=== PATIENT | female | born 2000 | race Caucasian/White ===

== ENCOUNTER 2025-01-12 22:23 | Observation (INO) ==
[2025-01-12] MEDS: ONDANSETRON INJ 2 MG/ML 2 ML VIAL IV STA (22:59)
[2025-01-12] MEDS: SODIUM CHLORIDE 0.9% 500 ML IV STA (23:01)
[2025-01-12] MEDS: KETOROLAC TROMETHAMINE 15 MG/ML VIAL IV ONE (23:37)
[2025-01-12] MEDS: SODIUM CHLORIDE 0.9% 1,000 ML IV ONE (23:37)
[2025-01-12 23:39] LABS: Hematocrit (blood only) 38.1 % (37.0-47.0); Hemoglobin 13.2 g/dl (12.0-16.0); Mean Corpuscular Hemoglobin 30.0 pg (25.0-34.0); Mean Corpuscular Volume 86.6 fL (80.0-100.0); Platelet Count 254 K/uL (130-400); RDW Standard Deviation 38.2 fL (36.4-46.3); Red Blood Count 4.40 M/uL (4.20-5.40); White Blood Count 13.69 K/ul (4.8-10.8)
--- NOTE | 2025-01-12 23:48 | Emergency Department Note ---
Impression & Plan Nausea & vomiting, Colic, ureteral, Right lower quadrant abdominal pain ED Provider Note NAME: MARITA MART AGE: 24 SEX: F : 2000 ARRIVES VIA: Walk-In INFORMANT: Patient, ED PROVIDER(S): Kourtney Remy MD CHIEF COMPLAINT: Kidney stone, nausea, vomiting HPI: This is a 24-year-old female presenting for nausea vomiting, dehydration kidney stone. Patient notes that she was here the past 2 nights as well. She does for the kidney stone on the right side by 2 nights ago. She did have persistent abdominal pain, nausea and vomiting. She presented yesterday. After fluid resuscitation and antiemetics, she had improved and was discharged home. Today she returns with persistent nausea, vomiting unable to keep fluids down. She has had minimal urine output due to not tolerating fluids. She still reports excruciating abdominal pain On the right side. Otherwise no urinary symptoms. Is currently on antibiotics ROS: See above HPI for pertinent positives & negatives. A total of 10 systems reviewed and were otherwise negative. PAST MEDICAL HISTORY: See Below PAST SURGICAL HISTORY: See Below FAMILY HISTORY: See Below SOCIAL HISTORY: See Below HOME MEDICATIONS: See Below ALLERGIES: See Below VITALS: See Below PHYSICAL EXAMINATION: General: resting comfortably in no acute distress Head: Normocephalic and atraumatic Eyes: Normal inspection, extraocular muscles intact Ear, nose, throat: Normal external exam Neck: Normal range of motion Respiratory: lungs clear to auscultation bilaterally Cardiovascular: Regular rate/rhythm, no murmur GI: Mild right pain without rebound or guarding Extremities: nontender, moves all extremities Neuro: The patient awake and alert, appropriately conversive, no focal deficits, symmetric faces Skin: Warm, dry, and intact MEDICAL DECISION MAKING: This is a 24-year-old male with send for nausea vomiting, abdominal pain. Patient was noted to have a kidney stone on CT imaging by 2 nights ago. Had repeat blood work done yesterday and appeared well. Today returns with persistent symptoms and inability tolerate fluids/food. Will do screening blood work, Zofran. - Leukocytosis increasing to 13.69. There is no toxic vacuolization and granulation. Will start on ceftriaxone at this time as urinalysis is also positive. -Patient has improvement after Toradol and Zofran however still having persistent symptoms. She is still tachycardic. Will admit to the hospital service at this time due to intractable nausea, vomiting, pain as well as increased leukocytosis, toxic vacuolization/granulation. -Care discussed with Dr. Santana for admission and urologic consultation. Differential diagnosis: Sepsis, renal colic, UTI, Independent History obtained from: Girlfriend Diagnostics interpreted by me: ECG: None Cardiac Monitoring: An order was placed for continuous cardiac monitoring. The monitor shows a rate of 102 with sinus rhythm. Past Med/Surg History Problem List (Updated 01/13/25 @ 01:16 EST by Kourtney Remy MD) Nausea & vomiting (Acute) Urinary frequency (Acute) Right lower quadrant abdominal pain (Acute) Nausea & vomiting (Acute) Colic, ureteral (Acute) Medical History Horseshoe kidney Headache Psychological disorder Surgical History No pertinent past surgical history Family History Grandfather (Maternal) Diabetes Social History Smoking Status: Never smoker Preferred Language: Mohawk marital status: Life Partner current occupational status: employed Feels Safe at Home: Yes Diet: regular during the past year weight has: remained stable Allergies Allergies Allergy/AdvReac Type Severity Reaction Status Date / Time amoxicillin AdvReac Intermediate hyperactivi Verified 01/12/25 23:26 ty fluconazole [From Diflucan] AdvReac Intermediate Gastrointestinal Verified 01/12/25 23:26 Upset Home Meds Home Medications Medication Instructions Recorded Confirmed diphenhydramine HCl 25 mg capsule 25 mg PO DIRECTED PRN Allergic 08/21/24 01/12/25 (Benadryl) Reaction ibuprofen 200 mg capsule 400 mg PO Q6H PRN Pain 08/30/24 01/12/25 Previous Rx's Medication Instructions Recorded ondansetron 4 mg disintegrating 4 mg PO Q8H PRN nausea and 01/10/25 tablet vomiting 5 days #15 tabs oxycodone 5 mg tablet 5 mg PO Q12H PRN pain #4 tabs 01/10/25 tamsulosin 0.4 mg capsule (Flomax) 0.4 mg PO HS #7 caps 01/10/25 cephalexin 500 mg capsule 500 mg PO TID 7 days #21 caps 01/11/25 Results & Data (ED) Vital Signs Vital Signs - 24 hr 01/12/25 22:33 01/12/25 23:19 01/12/25 23:21 Temperature 36.6 C Temperature Source Oral Pulse Rate 123 H 111 H 105 H Pulse Rate from SpO2 Sensor 106 H Respiratory Rate 18 14 Respiratory Effort / Characteristics Non-Labored Spontaneous Respiratory Depth Normal Respiratory Pattern Regular Blood Pressure 119/73 140/70 Blood Pressure Mean 88 93 Blood Pressure Position Sitting Pulse Oximetry 96 97 Oxygen Delivery Method Room Air Room Air Sepsis Recent Fever Within 48 Hours No Sepsis New/Unexplained Change in Mental Status N/A Sepsis Action Taken by Nursing No Action Required 01/12/25 23:33 01/12/25 23:54 01/13/25 00:00 Temperature Temperature Source Pulse Rate 111 H 112 H 91 H Pulse Rate from SpO2 Sensor 110 H 113 H 90 Respiratory Rate 19 17 20 Respiratory Effort / Characteristics Respiratory Depth Respiratory Pattern Blood Pressure 110/60 104/65 Blood Pressure Mean 76 84 Blood Pressure Position Pulse Oximetry 98 97 98 Oxygen Delivery Method Room Air Room Air Room Air Sepsis Recent Fever Within 48 Hours Sepsis New/Unexplained Change in Mental Status Sepsis Action Taken by Nursing 01/13/25 00:30 01/13/25 00:36 01/13/25 01:30 EDT Temperature Temperature Source Pulse Rate 124 H 102 H 104 H Pulse Rate from SpO2 Sensor 120 H 103 H 104 H Respiratory Rate 22 21 18 Respiratory Effort / Characteristics Respiratory Depth Respiratory Pattern Blood Pressure 115/98 118/81 Blood Pressure Mean 103 93 Blood Pressure Position Pulse Oximetry 96 99 98 Oxygen Delivery Method Room Air Room Air Room Air Sepsis Recent Fever Within 48 Hours Sepsis New/Unexplained Change in Mental Status Sepsis Action Taken by Nursing Laboratory Data 01/12/25 23:10 01/12/25 23:10 Lab Results 01/12/25 01/12/25 Range/Units 23:10 Unknown WBC 13.69 H (4.8-10.8) K/ul RBC 4.40 (4.20-5.40) M/uL Hgb 13.2 (12.0-16.0) g/dl Hct 38.1 (37.0-47.0) % MCV 86.6 (80.0-100.0) fL MCH 30.0 (25.0-34.0) pg MCHC 34.6 (32.0-36.0) g/dL RDW Std Deviation 38.2 (36.4-46.3) fL RDW Coeff of Sunil 12.0 (11.5-14.5) % Plt Count 254 (130-400) K/uL MPV 11.6 (9.4-12.4) fL Immature Gran % (Auto) 0.3 % Neut % (Auto) 91.4 % Lymph % (Auto) 3.0 % [place] % (Auto) 4.8 % Eos % (Auto) 0.1 % Baso % (Auto) 0.4 % Neut # (Auto) 12.52 H (1.40-6.50) K/uL Lymph # (Auto) 0.41 L (1.20-3.40) K/uL [place] # (Auto) 0.66 H (0.11-0.59) K/uL Eos # (Auto) 0.01 (0.00-0.50) K/uL Baso # (Auto) 0.05 (0.00-0.20) K/uL Immature Gran # (Auto) 0.04 (0.01-0.20) K/uL Toxic Granulation 1+ Toxic Vacuolation 1+ Polychromasia 1+ Sodium 141 (136-145) mmol/L Potassium 3.8 (3.5-5.1) mmol/L Chloride 105 (98-107) mmol/L Carbon Dioxide 26 (21-32) mmol/L Anion Gap 10 (3-11) BUN 11 (6-23) mg/dl Creatinine 0.86 (0.6-1.2) mg/dl Est Cr Clr Drug Dosing 79.9 ml/min eGFR 96.69 BUN/Creatinine Ratio 12.8 (10-20) Glucose 118 H (70-99(Fasting)) mg/dl Calcium 9.5 (8.6-10.3) mg/dl Magnesium 2.0 (1.7-2.4) mg/dl Total Bilirubin 0.5 (0.2-1.0) mg/dl AST 14 (13-39) U/L ALT 8 (7-52) U/L Alkaline Phosphatase 65 (34-104) U/L Total Protein 7.8 (6.0-8.3) gm/dl Albumin 4.6 (3.4-5.0) gm/dl Globulin 3.2 (2.5-4.0) gm/dl Albumin/Globulin Ratio 1.4 (0.9-2) Lipase 10 L (11-82) U/L HCG, Qual Negative (Negative) Urine Color Yellow Urine Appearance Cloudy A (Clear) Urine pH 5.5 (4.5-7.5) Ur Specific [place] 1.028 (1.000-1.030) Urine Protein 1+ H (Negative) Urine Glucose (UA) Negative (Negative) Urine Ketones 3+ H (Negative) Urine Blood 3+ H (Negative) Urine Nitrite Negative (Negative) Urine Bilirubin Negative (Negative) Urine Urobilinogen Negative (Negative) Ur Leukocyte Esterase 1+ H (Negative) Urine WBC (Auto) 21-50 H (0-5) /hpf Urine RBC (Auto) 6-10 H (0-2) /hpf U Hyaline Cast (Auto) 0-2 (0-2) /lpf U Epithel Cells (Auto) 11-20 H (0-2) /hpf Urine Bacteria (Auto) None Seen (None Seen) Urine Comment Administered Medications Potassium Chloride/Sodium Chloride (Normal Saline W/20 Meq Kcl) 20 meq in 1,000 mls @ 200 mls/hr IV .Q5H ONE Stop: 01/13/25 06:29 Last Admin: 01/13/25 01:09 EST Dose: 200 mls/hr Documented By: ABDON Discontinued Medications Sodium Chloride (Nss) 500 mls @ 999 mls/hr IV .Q31M STA Stop: 01/12/25 23:06 Last Infusion: 01/12/25 23:32 Dose: Infused Documented By: Admin: 01/12/25 23:01 Dose: 999 mls/hr Documented By: MARLENI Sodium Chloride (Nss) 1,000 mls @ 999 mls/hr IV .Q1H1M ONE Stop: 01/13/25 00:33 Last Infusion: 01/13/25 01:16 EDT Dose: Infused Documented By: Admin: 01/12/25 23:37 Dose: 999 mls/hr Documented By: ABDON Ceftriaxone Sodium (Rocephin) 2,000 mg in 50 mls @ 100 mls/hr IV NOW STA Stop: 01/13/25 01:36 EST Last Admin: 01/13/25 01:05 EST Dose: Not Given Documented By: ABDON Cefepime HCl (Maxipime 2000mg) 2,000 mg in 20 mls @ 5 mls/min IV NOW ONE; Protocol Stop: 01/13/25 01:33 EST Last Admin: 01/13/25 01:11 EST Dose: 5 mls/min Documented By: ABDON Ketorolac Tromethamine (Ketorolac Tromethamine 15 Mg/Ml Vial) 15 mg IV NOW ONE Stop: 01/12/25 23:34 Last Admin: 01/12/25 23:37 Dose: 15 mg Documented By: ABDON Ondansetron HCl (Ondansetron Inj 2 Mg/Ml 2 Ml Vial) 4 mg IV NOW STA Stop: 01/12/25 22:37 Last Admin: 01/12/25 22:59 Dose: 4 mg Documented By: MARLENI Discharge Plan Visit Data Chief Complaint: Vomiting Stated Complaint: ABD PAIN, VOMITING ED Provider: Kourtney Remy Discharge Problem: Nausea & vomiting, Colic, ureteral, Right lower quadrant abdominal pain Patient Disposition: Admitted As Inpatient Condition: Fair Forms Stand Alone Forms: [facility] Prescriptions Prescriptions: No Action ibuprofen 200 mg capsule 400 mg PO Q6H PRN (Reason: Pain) diphenhydramine HCl [Benadryl] 25 mg Capsule 25 mg PO DIRECTED PRN (Reason: Allergic Reaction) tamsulosin [Flomax] 0.4 mg capsule 0.4 mg PO HS Qty: 7 0RF ondansetron 4 mg tablet,disintegrating 4 mg PO Q8H PRN (Reason: nausea and vomiting) 5 Days Qty: 15 0RF oxycodone 5 mg tablet 5 mg PO Q12H PRN (Reason: pain) Qty: 4 0RF cephalexin 500 mg capsule 500 mg PO TID 7 Days Qty: 21 0RF Referrals Referrals: Rex Deleon [Primary Care Provider] -
[2025-01-12 23:57] LABS: Alanine Aminotransferase 8.0 U/L (7-52); Albumin Globulin Ratio 1.4 (0.9-2); Albumin Level 4.6 gm/dl (3.4-5.0); Alkaline Phosphatase 65.0 U/L (34-104); Anion Gap 10.0 (3-11); Bilirubin,Total 0.5 mg/dl (0.2-1.0); Blood Urea Nitrogen 11.0 mg/dl (6-23); Calcium 9.5 mg/dl (8.6-10.3); Carbon Dioxide 26.0 mmol/L (21-32); Chloride 105.0 mmol/L (98-107); Creatinine Clr Calc Pharmacy 79.9 ml/min; Globulin 3.2 gm/dl (2.5-4.0); Glucose 118.0 mg/dl (70-99(Fasting)); Lipase 10.0 U/L (11-82); Potassium 3.8 mmol/L (3.5-5.1); Sodium 141.0 mmol/L (136-145); Total Protein 7.8 gm/dl (6.0-8.3)
[2025-01-13 00:31] LABS: Appearance Urine Cloudy (Clear); Bacteria Urine Automated None Seen (None Seen); Cast Urine Automated 0-2 /lpf (0-2); Glucose Urine UA Negative (Negative); WBC Urine Automated 21-50 /hpf (0-5)
[2025-01-13 00:35] LABS: Pregnancy Test, Serum Negative (Negative)
[2025-01-13 01:02] LABS: Immature Granulocytes # (auto) 0.04 K/uL (0.01-0.20); Immature Granulocytes % (auto) 0.3 %; Polychromasia 1+; Toxic Granulation 1+; Toxic Vacuolation 1+
[2025-01-13] MEDS: cefTRIAXone SODIUM 2,000 MG/50 ML BAG IV STA (01:05)
[2025-01-13] MEDS: NSS + 20MEQ KCL 20 MEQ/1,000 ML BAG IV ONE (01:09)
[2025-01-13] MEDS: CEFEPIME 2000MG 2,000 MG/20 ML SYR IV ONE (01:11)
--- NOTE | 2025-01-13 01:21 | History & Physical Report ---
Date of Service January 13, 2025 Assessment & Plan (1) Sepsis: Plan: Assessment and plan below following discussion of case with ED provider and reviewing patient history/pertinent normal/abnormal diagnostic test results. Sepsis secondary to UTI Failed outpatient therapy Rule out obstructing kidney stone hx horseshoe kidney Hyperglycemia rule out DM ADHD/mood disorder, stable off maintenance medications. Admit to med/tele CS, Cefepime Renal ultrasound Urology consult contingent on imaging results N.p.o. until renal ultrasound resulted Check hemoglobin A1c DVT prophylaxis. SCDs re: possible procedure Full code Text document was generated using [employer] voice recognition software. It may contain grammatical or spelling errors. Kindly contact undersigned for clarification of any documentation item in question. History of Present Illness Chief Complaint: Worsening kidney stone pain, nausea, vomiting Primary Care Provider: Rex Deleon History obtained from patient and records. Medical history significant for horseshoe kidney, recent diagnosis of kidney stone, ADHD, mood disorder. 5 days ago, patient noted achy right flank pain associated with nausea and emesis. Blood in the urine which could be from her menstrual period as per patient. No prior history of kidney stones as per patient. 01/10 [facility] ER consultation. CT abdomen pelvis showed 2 mm distal right ureteral stone without significant hydronephrosis. Patient discharged home on Flomax and narcotic medications. 01/11 Patient returned to [facility] ER for worsening symptoms. Ceftriaxone given for possible UTI. Patient discharged on Keflex course. Patient return to ER tonight for worsening symptoms despite compliance with medications. Has not noticed stone passage at home. Medical History as above Surgical History : None Family History : Mood disorder, schizophrenia; no kidney stones Personal/Social history : Non-smoker, no EtOH intake, fast food restaurant employee Allergies Allergy/AdvReac Type Severity Reaction Status Date / Time amoxicillin AdvReac Intermediate hyperactivi Verified 01/12/25 23:26 ty fluconazole [From Diflucan] AdvReac Intermediate Gastrointestinal Verified 01/12/25 23:26 Upset Home Medications Medication Instructions Recorded Confirmed Type diphenhydramine HCl 25 mg capsule 25 mg PO DIRECTED PRN Allergic 08/21/24 01/12/25 History (Benadryl) Reaction ibuprofen 200 mg capsule 400 mg PO Q6H PRN Pain 08/30/24 01/12/25 History ondansetron 4 mg disintegrating 4 mg PO Q8H PRN nausea and 01/10/25 01/12/25 Rx tablet vomiting 5 days #15 tabs oxycodone 5 mg tablet 5 mg PO Q12H PRN pain #4 tabs 01/10/25 01/12/25 Rx tamsulosin 0.4 mg capsule (Flomax) 0.4 mg PO HS #7 caps 01/10/25 01/12/25 Rx cephalexin 500 mg capsule 500 mg PO TID 7 days #21 caps 01/11/25 01/12/25 Rx Past Med/Surg History Problem List (Updated 01/13/25 @ 01:52 EST by Víctor Johnson MD) Sepsis Nausea & vomiting (Acute) Urinary frequency (Acute) Right lower quadrant abdominal pain (Acute) Nausea & vomiting (Acute) Colic, ureteral (Acute) Medical History Horseshoe kidney Headache Psychological disorder Surgical History No pertinent past surgical history Family History Grandfather (Maternal) Diabetes Social History Smoking Status: Never smoker Preferred Language: Divehi marital status: Life Partner current occupational status: employed Feels Safe at Home: Yes Diet: regular during the past year weight has: remained stable Review of Systems Review of Systems: As per HPI, all other systems reviewed and negative Physical Exam Physical Exam: GENERAL: uncomfortable, no respiratory distress SKIN: Normal color, warm HEENT: [place] palpebral conjunctivae, no ptosis, dry buccal mucosa NECK : Supple, no tenderness CHEST : CTA, no tenderness HEART : Tachycardic, no obvious murmurs ABDOMEN: Some distention, right flank tenderness EXTREMITIES : No LE swelling/tenderness, palpable pulses, no other conspicuous deformities noted NEUROLOGIC : Coherent, no facial asymmetry, no other gross focality Results & Data Results & Data Vital Signs (Past 12 Hours) Vital Signs Temp Pulse Resp BP Pulse Ox O2 Del Method 01/13/25 00:30 124 H 22 115/98 96 Room Air 01/13/25 00:00 91 H 20 104/65 98 Room Air 01/12/25 23:54 112 H 17 110/60 97 Room Air 01/12/25 23:33 111 H 19 98 Room Air 01/12/25 23:21 105 H 14 140/70 97 Room Air 01/12/25 23:19 111 H 01/12/25 22:33 36.6 C 123 H 18 119/73 96 Room Air Laboratory Results Laboratory Results WBC 13.69 K/ul (4.8-10.8) H 01/12/25 23:10 RBC 4.40 M/uL (4.20-5.40) 01/12/25 23:10 Hgb 13.2 g/dl (12.0-16.0) 01/12/25 23:10 Hct 38.1 % (37.0-47.0) 01/12/25 23:10 MCV 86.6 fL (80.0-100.0) 01/12/25 23:10 MCH 30.0 pg (25.0-34.0) 01/12/25 23:10 MCHC 34.6 g/dL (32.0-36.0) 01/12/25 23:10 RDW Std Deviation 38.2 fL (36.4-46.3) 01/12/25 23:10 RDW Coeff of Sunil 12.0 % (11.5-14.5) 01/12/25 23:10 Plt Count 254 K/uL (130-400) 01/12/25 23:10 MPV 11.6 fL (9.4-12.4) 01/12/25 23:10 Immature Gran % (Auto) 0.3 % 01/12/25 23:10 Neut % (Auto) 91.4 % 01/12/25 23:10 Lymph % (Auto) 3.0 % 01/12/25 23:10 [place] % (Auto) 4.8 % 01/12/25 23:10 Eos % (Auto) 0.1 % 01/12/25 23:10 Baso % (Auto) 0.4 % 01/12/25 23:10 Neut # (Auto) 12.52 K/uL (1.40-6.50) H 01/12/25 23:10 Lymph # (Auto) 0.41 K/uL (1.20-3.40) L 01/12/25 23:10 [place] # (Auto) 0.66 K/uL (0.11-0.59) H 01/12/25 23:10 Eos # (Auto) 0.01 K/uL (0.00-0.50) 01/12/25 23:10 Baso # (Auto) 0.05 K/uL (0.00-0.20) 01/12/25 23:10 Immature Gran # (Auto) 0.04 K/uL (0.01-0.20) 01/12/25 23:10 Toxic Granulation 1+ 01/12/25 23:10 Toxic Vacuolation 1+ 01/12/25 23:10 Polychromasia 1+ 01/12/25 23:10 Sodium 141 mmol/L (136-145) 01/12/25 23:10 Potassium 3.8 mmol/L (3.5-5.1) 01/12/25 23:10 Chloride 105 mmol/L (98-107) 01/12/25 23:10 Carbon Dioxide 26 mmol/L (21-32) 01/12/25 23:10 Anion Gap 10 (3-11) 01/12/25 23:10 BUN 11 mg/dl (6-23) 01/12/25 23:10 Creatinine 0.86 mg/dl (0.6-1.2) 01/12/25 23:10 Est Cr Clr Drug Dosing 79.9 ml/min 01/12/25 23:10 eGFR 96.69 01/12/25 23:10 BUN/Creatinine Ratio 12.8 (10-20) 01/12/25 23:10 Glucose 118 mg/dl (70-99(Fasting)) H 01/12/25 23:10 Calcium 9.5 mg/dl (8.6-10.3) 01/12/25 23:10 Total Bilirubin 0.5 mg/dl (0.2-1.0) 01/12/25 23:10 AST 14 U/L (13-39) 01/12/25 23:10 ALT 8 U/L (7-52) 01/12/25 23:10 Alkaline Phosphatase 65 U/L (34-104) 01/12/25 23:10 Total Protein 7.8 gm/dl (6.0-8.3) 01/12/25 23:10 Albumin 4.6 gm/dl (3.4-5.0) 01/12/25 23:10 Globulin 3.2 gm/dl (2.5-4.0) 01/12/25 23:10 Albumin/Globulin Ratio 1.4 (0.9-2) 01/12/25 23:10 Lipase 10 U/L (11-82) L 01/12/25 23:10 HCG, Qual Negative (Negative) 01/12/25 23:10 Urine Color Yellow 01/12/25 Unknown Urine Appearance Cloudy (Clear) A 01/12/25 Unknown Urine pH 5.5 (4.5-7.5) 01/12/25 Unknown Ur Specific [place] 1.028 (1.000-1.030) 01/12/25 Unknown Urine Protein 1+ (Negative) H 01/12/25 Unknown Urine Glucose (UA) Negative (Negative) 01/12/25 Unknown Urine Ketones 3+ (Negative) H 01/12/25 Unknown Urine Blood 3+ (Negative) H 01/12/25 Unknown Urine Nitrite Negative (Negative) 01/12/25 Unknown Urine Bilirubin Negative (Negative) 01/12/25 Unknown Urine Urobilinogen Negative (Negative) 01/12/25 Unknown Ur Leukocyte Esterase 1+ (Negative) H 01/12/25 Unknown Urine WBC (Auto) 21-50 /hpf (0-5) H 01/12/25 Unknown Urine RBC (Auto) 6-10 /hpf (0-2) H 01/12/25 Unknown U Hyaline Cast (Auto) 0-2 /lpf (0-2) 01/12/25 Unknown U Epithel Cells (Auto) 11-20 /hpf (0-2) H 01/12/25 Unknown Urine Bacteria (Auto) None Seen (None Seen) 01/12/25 Unknown Urine Comment 01/12/25 Unknown
[2025-01-13 01:29] LABS: Magnesium 2.0 mg/dl (1.7-2.4)
[2025-01-13] MEDS: PROMETHAZINE 12.5 MG/50.5 ML BAG IV PRN (01:52)
--- NOTE | 2025-01-13 03:57 | Ultrasound Report ---
EXAM: US renal/blad retro comp CLINICAL HISTORY: kidney stone ffup. TECHNIQUE: A renal ultrasound was performed using grayscale and Duplex imaging. COMPARISON: CT abdomen pelvis dated 01/10/2025 (No images provided, as per worksheet notes). FINDINGS: The kidney is horseshoe-shaped (known case). Right Kidney: The right kidney measures 12.97 x 4.19 x 4.11 cm. Fullness of the right pelvicalyceal system is noted. No cysts, definite hydronephrosis, calculi, or masses are identified. Renal parenchymal echogenicity is normal. Cortical thickness is within normal limits. Left Kidney: The left kidney measures 12.28 x 3.67 x 3.16 cm. No cysts, hydronephrosis, calculi, or masses are identified. Renal parenchymal echogenicity is normal. Cortical thickness is within normal limits. The renal pelvis is within normal limits. The renal isthmus measures 1.53 cm. Urinary bladder: The urinary bladder is partially filled. No calculus or mass is noted. Bilateral ureteral jets are not seen at the time of the scan. IMPRESSION: 1. Fullness of the right pelvicalyceal system. 2. No evidence of hydronephrosis or renal masses bilaterally. 3. On comparison with the previous CT abdomen pelvis dated 01/10/2025 (No images provided, as per work sheet notes), no right distal ureter calculus is seen on this follow-up ultrasound. Electronically signed by Man Mosquera 01-13-2025 03:57 AM
[2025-01-13] MEDS: METOCLOPRAMIDE HCL INJ 5 MG/ML 2 ML VIAL IV ONE (04:24)
--- NOTE | 2025-01-13 07:36 | Hospitalist Progress Note ---
<Statement entered by Gallo Zuleta, DO - 01/13/25 15:27> I have seen and examined the patient and have discussed the case with the advance practice provider. I have reviewed the advanced practitioner's documentation, and I agree with, and take responsibility for that plan of care. Patient reports feeling significantly improved, tolerating diet and ready to be advanced. Patient had presented to ED for the last 2 nights, will continue to observe and ensure that patient is steadily improving overnight. Plan of care as outlined below I spent a total of 15 minutes coordinating, documenting, and providing care for this patient excluding time spent by another provider/QHP. Date of Service January 13, 2025 Assessment & Plan (1) UTI (urinary tract infection): (2) Sepsis: Plan 24 year old female with PMH significant for horseshoe kidney, depression, and ADHD who presented to the ED on 01/12/2025 with worsening flank pain, N/V. She initially came to the ED on 01/10 and was found to have a 2mm right ureteral stone without hydronephrosis and was discharged on Flomax and oxycodone. Returned to ED on 01/11 with worsening symptoms and was discharged on keflex for possible UTI. Returned to the ED on 01/12 due to continued symptoms. UTI Patient presenting with worsening right flank pain, N/V Reports intolerance of keflex due to worsening GI upset and vomiting Labs revealed leukocytosis 13K Renal ultrasound with no evidence of hydronephrosis or renal masses bilaterally, no right distal ureter calculus UA +leuk esterase, WBC, RBC, protein Urine culture pending Initially started on cefepime-> switch to ceftriaxone Pain control with tylenol, toradol, oxycodone Possible sepsis Meets criteria with leukocytosis and tachycardia iso UTI Lactate negative Blood cultures pending Continue abx as above DVT Prophylaxis: SCDs Code Status: FULL CODE PCP: None Disposition: anticipate dc to home Patient seen in collaboration with Dr. Zuleta. Please see addendum. I spent a total of 50 minutes coordinating, documenting and providing care for this patient excluding time spent in the performance of separately billed services or time spent by another provider/QHP. Admission and Anticipated Discharge Date Admission Date: January 13, 2025 Subjective Patient seen resting in bed Reports intermittent sharp/stabbing pain in right flank but notes some improvement Still occasionally nauseous Denies chest pain, SOB, abdominal pain, vomiting Review of Systems Review of Systems: All systems reviewed & are unremarkable except as noted in HPI & below Physical Exam Physical Exam: General/Psych: WD/WN, sitting up in bed, NAD, conversing easily Head: normocephalic, atraumatic Eyes: normal inspection, PERRL, conjunctivae pink ENT: external ear and nose normal, oropharynx normal Neck: normal visual inspection, trachea midline Respiratory: normal respiratory effort, lungs clear to auscultation, no wheeze/rales/rhonchi, no accessory muscle use Cardiovascular: regular rate and rhythm, no murmur/rub/gallop Extremities: no cyanosis or clubbing, normal peripheral pulses, no BLE edema Abdomen/GI: normal bowel sounds, soft, +right flank pain Neurologic/MSK: A+Ox3, motor strength 5/5, moves all extremities Skin: no rashes, normal color, warm and dry Results & Data Results & Data Vital Signs (Past 12 Hours) Vital Signs Temp Pulse Pulse Resp BP BP Pulse Ox 01/13/25 05:45 111 H 01/13/25 03:14 01/13/25 03:12 37.1 C 104 H 16 117/77 100 01/13/25 02:20 36.6 C 01/13/25 02:06 122 H 18 117/67 97 01/13/25 01:54 EST 108 H 24 109/78 100 01/13/25 01:30 EST 96 H 21 118/81 98 01/13/25 01:00 EST 102 H 17 112/80 99 01/13/25 01:30 EDT 104 H 18 118/81 98 01/13/25 00:36 102 H 21 99 01/13/25 00:30 124 H 22 115/98 96 01/13/25 00:00 91 H 20 104/65 98 01/12/25 23:54 112 H 17 110/60 97 01/12/25 23:33 111 H 19 98 01/12/25 23:21 105 H 14 140/70 97 01/12/25 23:19 111 H 01/12/25 22:33 36.6 C 123 H 18 119/73 96 Pulse Ox O2 Del Method O2 Del Method 01/13/25 05:45 01/13/25 03:14 100 Room Air 01/13/25 03:12 Room Air 01/13/25 02:20 01/13/25 02:06 Room Air 01/13/25 01:54 EST Room Air 01/13/25 01:30 EST Room Air 01/13/25 01:00 EST Room Air 01/13/25 01:30 EDT Room Air 01/13/25 00:36 Room Air 01/13/25 00:30 Room Air 01/13/25 00:00 Room Air 01/12/25 23:54 Room Air 01/12/25 23:33 Room Air 01/12/25 23:21 Room Air 01/12/25 23:19 01/12/25 22:33 Room Air Diagnostic Findings Renal Ultrasound 01/13/25 01:51 EST EXAM: US renal/blad retro comp CLINICAL HISTORY: kidney stone ffup. TECHNIQUE: A renal ultrasound was performed using grayscale and Duplex imaging. COMPARISON: CT abdomen pelvis dated 01/10/2025 (No images provided, as per worksheet notes). FINDINGS: The kidney is horseshoe-shaped (known case). Right Kidney: The right kidney measures 12.97 x 4.19 x 4.11 cm. Fullness of the right pelvicalyceal system is noted. No cysts, definite hydronephrosis, calculi, or masses are identified. Renal parenchymal echogenicity is normal. Cortical thickness is within normal limits. Left Kidney: The left kidney measures 12.28 x 3.67 x 3.16 cm. No cysts, hydronephrosis, calculi, or masses are identified. Renal parenchymal echogenicity is normal. Cortical thickness is within normal limits. The renal pelvis is within normal limits. The renal isthmus measures 1.53 cm. Urinary bladder: The urinary bladder is partially filled. No calculus or mass is noted. Bilateral ureteral jets are not seen at the time of the scan. IMPRESSION: 1. Fullness of the right pelvicalyceal system. 2. No evidence of hydronephrosis or renal masses bilaterally. 3. On comparison with the previous CT abdomen pelvis dated 01/10/2025 (No images provided, as per work sheet notes), no right distal ureter calculus is seen on this follow-up ultrasound. Electronically signed by Mna Mosquera 01-13-2025 03:57 AM Medications Administered Current Inpatient Medications Acetaminophen (Acetaminophen 325 Mg Tab) 650 mg PO QID PRN PRN Reason: pain/fever Stop: 02/12/25 01:21 Hydroxyzine HCl (Hydroxyzine Hcl 10 Mg Tab) 10 mg PO QID PRN PRN Reason: Anxiety Stop: 02/12/25 01:21 Promethazine HCl (Phenergan) 12.5 mg in 50.5 mls @ 202 mls/hr IV Q6H PRN PRN Reason: Nausea And Vomiting Stop: 02/12/25 01:21 Last Infusion: 01/13/25 09:09 Dose: Infused Ceftriaxone Sodium (Rocephin) 1,000 mg in 50 mls @ 100 mls/hr IV Q24H BRYAN Stop: 01/18/25 16:59 Ketorolac Tromethamine (Ketorolac Tromethamine 15 Mg/Ml Vial) 15 mg IV Q6H PRN PRN Reason: Pain Stop: 01/18/25 01:21 Last Admin: 01/13/25 08:42 Dose: 15 mg Oxycodone HCl (Oxycodone Hcl Ir 5 Mg Tab (Immediate Release)) 5 - 10 mg PO QID PRN PRN Reason: Pain Stop: 01/27/25 01:21
[2025-01-13] MEDS: KETOROLAC TROMETHAMINE 15 MG/ML VIAL IV PRN (08:42)
[2025-01-13] MEDS: CEFEPIME 2000MG 2,000 MG/20 ML SYR IV SCH (09:11)
[2025-01-13] MEDS ORDERED: ONDANSETRON INJ 2 MG/ML 2 ML VIAL IV PRN (14:43)
[2025-01-13] MEDS: cefTRIAXone SODIUM 1,000 MG/50 ML BAG IV SCH (16:02)
[2025-01-13] MEDS ORDERED: TAMSULOSIN HCL 0.4 MG CAP PO SCH (21:00)
[2025-01-14 03:37] LABS: A calco-baum cmplx NotReported Not Detected (NotDetected); Bact fragilis Not Reported Not Detected (NotDetected); Blood Culture Id Panel See PCR Comment (NotDetected); C auris Not Reported Not Detected (NotDetected); Calbicans Not Reported Not Detected (NotDetected); Candida glabrata Not Reported Not Detected (NotDetected); Candida krusei Not Reported Not Detected (NotDetected); Cneoformans/gatti Not Reported Not Detected (NotDetected); Cparapsilosis Not Reported Not Detected (NotDetected); Ctropicalis Not Reported Not Detected (NotDetected); E cloacae compx Not Reported Not Detected (NotDetected); Efaecalis Not Reported Not Detected (NotDetected); Efaecium Not Reported Not Detected (NotDetected); Enterobacterales Not Reported Not Detected (NotDetected); Escherichia coli Not Reported Not Detected (NotDetected); H influenzae Not Reported Not Detected (NotDetected); K aerogenes Not Reported Not Detected (NotDetected); Koxytoca Not Reported Not Detected (NotDetected); Kpneumoniae grp Not Reported Not Detected (NotDetected); Lmonocyt Not Reported Not Detected (NotDetected); N meningitidis Not Reported Not Detected (NotDetected); P aeruginosa Not Reported Not Detected (NotDetected); Proteus spp Not Reported Not Detected (NotDetected); Salmonella spp Not Reported Not Detected (NotDetected); Staph lugdunensis Not Reported Not Detected (NotDetected); Staph spp. Not Reported DETECTED (NotDetected); Staphaureus Not Reported Not Detected (NotDetected); Staphepi Not Reported DETECTED (NotDetected); Staphylococcus spp. DETECTED (NotDetected); Stenmaltophilia Not Reported Not Detected (NotDetected); Strep agal(GrpB) Not Reported Not Detected (NotDetected); Strep pneum Not Reported Not Detected (NotDetected); Strep pyog (GrpA) Not Reported Not Detected (NotDetected); Strep spp Not Reported Not Detected (NotDetected)
[2025-01-14 04:08] LABS: Staphylococcus epidermidis DETECTED (NotDetected); mecAC Resistant Gene DETECTED (NotDetected)
[2025-01-14] MEDS: ACETAMINOPHEN 325 MG TAB PO PRN (06:29)
[2025-01-14 06:56] LABS: Hematocrit (blood only) 35.6 % (37.0-47.0); Hemoglobin 11.7 g/dl (12.0-16.0); Mean Corpuscular Hemoglobin 28.4 pg (25.0-34.0); Mean Corpuscular Volume 86.4 fL (80.0-100.0); Platelet Count 227 K/uL (130-400); RDW Standard Deviation 37.7 fL (36.4-46.3); Red Blood Count 4.12 M/uL (4.20-5.40); White Blood Count 7.23 K/ul (4.8-10.8)
[2025-01-14 07:30] LABS: Anion Gap 7.0 (3-11); Blood Urea Nitrogen 8.0 mg/dl (6-23); Calcium 9.0 mg/dl (8.6-10.3); Carbon Dioxide 25.0 mmol/L (21-32); Chloride 106.0 mmol/L (98-107); Creatinine Clr Calc Pharmacy 117.1 ml/min; Glucose 87.0 mg/dl (70-99(Fasting)); Potassium 3.9 mmol/L (3.5-5.1); Sodium 138.0 mmol/L (136-145)
[2025-01-14] MEDS: IBUPROFEN 600 MG TAB PO STA (09:19)
--- NOTE | 2025-01-14 09:46 | Discharge Summary ---
<Statement entered by Gallo Zuleta DO - 01/14/25 12:57> I have seen and examined the patient and have discussed the case with the advance practice provider. I have reviewed the advanced practitioner's documentation, and I agree with, and take responsibility for that plan of care. Patient tolerating her diet, feeling significantly improved from admission. Discharge plans as outlined below I spent a total of 10 minutes coordinating, documenting, and providing care for this patient excluding time spent by another provider/QHP. Discharge Summary Date of Service January 14, 2025 Principal Dx & Hospital Course #1 = Principal Diagnosis (1) Sepsis: (2) UTI (urinary tract infection): Plan Patient is a 24y/o F with PMHx significant for horseshoe kidney, atopic dermatitis, depression and ADHD who presented to the ED on 01/12/25 with c/o worsening right flank pain and N/V. Initially presented to ED on 01/10/25 with c/o right-sided abdominal pain and N/V; found to have a 2mm right ureteral stone w/o hydronephrosis and was DC on Flomax and PRN oxycodone. Returned to ED on 01/11/25 with worsening of previous sx plus urinary retention and dysuria; found to have possible UTI and was DC on Keflex. Again returned to ED on 01/12/25 due to continued sx despite compliance with medications. Sepsis Acute urinary tract infection History as per above; p/w worsening R flank pain, N/V. Reported intolerance of Keflex 2/2 GI upset. CTAP on 01/10/25 with 2mm distal right ureteral stone without significant hydronephrosis. Renal US on 01/13/25 with fullness of the right pelvicalyceal system but no evidence of hydronephrosis or renal masses. -No right distal ureter calculus was seen on the US >> spontaneously passed. -Right flank pain resolved this morning. Repeat UA on 01/12/25 with 1+ LE, + WBC. Did technically meet sepsis criteria on admission 2/2 tachycardia, leukocytosis and + source. Lactate negative. Was initially started on IV cefepime, was then transitioned to IV Rocephin on 01/13/25. 1/4 blood cultures growing gram (+) cocci clusters, all others with NGTD. -Suspect contaminant, pt clinically improving. Still with some suprapubic discomfort but otherwise well-appearing on exam this morning. Tolerating diet, nausea resolved. Pain controlled with PRN NSAIDs. Leukocytosis resolved, tachycardia improved >> stable for discharge. Will receive 2nd dose of IV Rocephin prior to DC (communicated with RN). Urine culture still pending at time of DC >> will send home on po cefdinir to complete 7-day ABX course. Advised pt to continue rotating Tylenol and Motrin/Advil for pain control >> instructions provided in DC paperwork. PCP: Rex Deleon MD >> Patient will need to call her PCP directly to schedule an appointment. Disposition: Patient is being DC home in stable condition. Patient seen in collaboration with Dr. Zuleta. Please see addendum. I spent a total of 65 minutes coordinating, documenting, and providing care for this patient excluding time spent in the performance of separately billed services or time spent by another provider/QHP. This included personally r eviewing all current laboratories and imaging studies, medical reconciliation, outpatient chart review and discussion with specialists. This chart was completed in part utilizing Speech Voice Recognition Software. Grammatical errors, random word insertions, pronoun errors, and incomplete sentences are an occasional consequence of this system due to software limitations, ambient noise, and hardware issues. Any formal questions or concerns about the content, text, or information contained within the body of this dictation should be directly addressed to the provider for clarification. Notes For Next Care Provider Urine culture results still pending at time of discharge. Medication Changes From Visit Cefdinir 300mg BID x 5 days beginning AM of 01/15/2025. Admission HPI Per Admitting Provider History obtained from patient and records. Medical history significant for horseshoe kidney, recent diagnosis of kidney stone, ADHD, mood disorder. 5 days ago, patient noted achy right flank pain associated with nausea and emesis. Blood in the urine which could be from her menstrual period as per patient. No prior history of kidney stones as per patient. 01/[address] [facility] [address] CT abdomen pelvis showed 2 mm distal right ureteral stone without significant hydronephrosis. Patient discharged home on Flomax and narcotic medications. 01/11 Patient returned to [facility] ER for worsening symptoms. Ceftriaxone given for possible UTI. Patient discharged on Keflex course. Patient return to ER tonight for worsening symptoms despite compliance with medications. Has not noticed stone passage at home. Medical History as above Surgical History : None Family History : Mood disorder, schizophrenia; no kidney stones Personal/Social history : Non-smoker, no EtOH intake, fast food restaurant employee Admission Exam Per Admitting Provider GENERAL: uncomfortable, no respiratory distress SKIN: Normal color, warm HEENT: [place] palpebral conjunctivae, no ptosis, dry buccal mucosa NECK : Supple, no tenderness CHEST : CTA, no tenderness HEART : Tachycardic, no obvious murmurs ABDOMEN: Some distention, right flank tenderness EXTREMITIES : No LE swelling/tenderness, palpable pulses, no other conspicuous deformities noted NEUROLOGIC : Coherent, no facial asymmetry, no other gross focality Discharge Exam General/Psych: WD/WN, laying down in bed, NAD, conversing easily Head: normocephalic, atraumatic Eyes: normal inspection, PERRL, conjunctivae pink ENT: external ear and nose normal, oropharynx normal Neck: normal visual inspection, trachea midline Respiratory: normal respiratory effort, CTAB, no wheeze/rales/rhonchi, no accessory muscle use Cardiovascular: regular rate and rhythm, no murmur/rub/gallop Extremities: no cyanosis or clubbing, normal peripheral pulses, no BLE edema Abdomen/GI: normal bowel sounds, soft, + mild suprapubic tenderness Neurologic/MSK: A+Ox3, motor strength 5/5, moves all extremities Skin: no rashes, normal color, warm and dry Updated Medication List Medication Instructions Recorded Confirmed Type diphenhydramine HCl 25 mg capsule 25 mg PO DIRECTED PRN Allergic 08/21/24 01/12/25 History (Benadryl) Reaction ibuprofen 200 mg capsule 400 mg PO Q6H PRN Pain 08/30/24 01/12/25 History ondansetron 4 mg disintegrating 4 mg PO Q8H PRN nausea and 01/10/25 01/12/25 Rx tablet vomiting 5 days #15 tabs oxycodone 5 mg tablet 5 mg PO Q12H PRN pain #4 tabs 01/10/25 01/12/25 Rx tamsulosin 0.4 mg capsule (Flomax) 0.4 mg PO HS #7 caps 01/10/25 01/12/25 Rx cephalexin 500 mg capsule 500 mg PO TID 7 days #21 caps 01/11/25 01/12/25 Rx cefdinir 300 mg capsule 300 mg PO BID 5 days #10 caps 01/14/25 Rx ondansetron HCl 4 mg tablet 4 mg PO Q8H PRN nausea and 01/14/25 Rx vomiting #20 tabs Hospital Stay Data Consultations 01/13/25 01:27 ED Decision to Admit Stat Diagnostic Imagining Performed 01/13/25 01:51 US Renal Bladder [US renal/blad retro comp] Stat IMPRESSION: 1. Fullness of the right pelvicalyceal system. 2. No evidence of hydronephrosis or renal masses bilaterally. 3. On comparison with the previous CT abdomen pelvis dated 01/10/2025 (No images provided, as per work sheet notes), no right distal ureter calculus is seen on this follow-up ultrasound. Pending Results Patient Have Any Pending Studies at Discharge: Yes (Urine culture, final blood cultures) Discharge Instructions Given to Patient (Per Discharging Provider) Imani, you were admitted to [facility] due to an acute urinary tract infection. Your urine culture is still pending at time of discharge. You are being discharged on an oral course of antibiotics, called cefdinir. A prescription for this has been sent to [facility] at [address], [place]. You will be contacted by our service if your urine culture happens to grow b acteria (or a bacterium) that is not covered by the above antibiotic like we had discussed. If this is the case, you will be prescribed a different antibiotic that is appropriate to treat your specific type of infection. For enhanced pain relief, alternating acetaminophen (Tylenol) and ibuprofen (Motrin or Advil) can be more effective than taking either medication alone. A common adult dosing schedule for rotating these medications involves staggering them by 3 to 4 hours. The total doses for each drug should not exceed the daily maximum recommended on the packaging. Example 4-hour alternating schedule: * 8:00 AM: Take ibuprofen (Motrin). * 12:00 PM: Take acetaminophen (Tylenol). * 4:00 PM: Take ibuprofen (Motrin). * 8:00 PM: Take acetaminophen (Tylenol). * 12:00 AM: Take ibuprofen (Motrin). * 4:00 AM: Take acetaminophen (Tylenol). Always take ibuprofen with food to avoid an upset stomach. Acetaminophen can be taken with or without food. A prescription for an antinausea medication was also sent to your pharmacy, called Elsa ([email or web address]). Recommendations for follow-up: It is advised that you schedule a PCP hospital discharge follow-up appointment within the next 1 to 3 weeks. You will need to call your PCP's office to arrange this. Seek medical attention if you have: * temperature above 101F * chest pain or trouble breathing * abdominal pain, nausea, vomiting * diarrhea, dark stools or bloody stools * any unanswered questions or concerns Call 911 if symptoms are severe. Please take good care of yourself. It has been a pleasure taking care of you. If you have any questions regarding your recent hospitalization, please contact [facility] and request a [facility] @ [phone]. Total Time Total Time Spent Total Time Spent (In Minutes): 65
[2025-01-14 11:21] VITALS: PULSE 82; RESP 17; TEMP 98.8; O2SAT 98
[2025-01-14] MEDS: cefTRIAXone SODIUM 1,000 MG/50 ML BAG IV STA (11:23)
[2025-01-14 13:23] VITALS: BP 100/66
== END 2025-01-14 13:55 | disposition home or self-care (01) | DRG 872 ==
LOC: ED 22:23 → INTOOBSV 01-13 01:21 → SUATTDRO 01-13 01:21 → 2N 01-13 01:21